=== PATIENT | female | born 1995 | race African-American/Black ===

== ENCOUNTER 2017-01-22 12:08 | Emergency (ER) | payer BC, MEDICAID ==
[~2017-01-22] VITALS: Ht 165.1 cm; Wt 72.6 kg
[~2017-01-22 12:08] MED LIST: ALBUTEROL SULF8.5 GM INH; IBUPROFEN600 MG PO
--- NOTE | 2017-01-22 12:55 | Emergency Room Report ---
History of Present Illness General Chief Complaint: General Complaint Source: Patient Present Illness HPI 21-year-old female presents emergency department complaining of 10 out of 10 in severity right plantar tenderness x1 week. Patient states the pain and it resolved however over the last 3 days her pain progressed again. Patient does not recall appreciable trauma. 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 Patient states that her swelling typically resolves with elevation. Patient reports pain and swelling to the plantar aspect of the right foot which is new for her. She denies erythema, increased temperature palpation, claudication, calf pain, recent travel, skin color changes, loss of sensation. Patient states that the bottom of her right foot is very tender to light touch in the localized area near the arch. Denies numbness tingling or loss of sensation or gross motor movements of the extremities, incontinence of bowel or bladder. Denies CP, Palpitations, LOC, AMS, dizziness, Changes in Vision, Sensation, paresthesias, or a sudden severe headache. Allergies: Coded Allergies: No Known Allergies (Unverified , 12/22/13) Patient History Past Medical History: see triage record Past Surgical History: none Pertinent Family History: none Now: No Immunizations: UTD Reviewed Nursing Documentation: PMH: Agreed, PSxH: Agreed Nursing Documentation-PMH Hx Asthma: Yes Review of Systems All Other Systems: negative except mentioned in HPI Physical Exam Vital Signs Date Time Temp Pulse Resp B/P Pulse Ox O2 Delivery O2 Flow Rate FiO2 01/22/17 12:25 98.1 68 16 110/70 98 Room Air Sp02 EP Interpretation: reviewed, normal General Appearance: no apparent distress, alert, GCS 15, non-toxic Head: normocephalic, atraumatic Eyes: bilateral eye PERRL, bilateral eye normal inspection ENT: hearing grossly normal, normal pharynx, no angioedema, normal voice Neck: full range of motion, supple/symm/no masses Respiratory: lungs clear, normal breath sounds, speaking full sentences Cardiovascular #1: regular rate, rhythm, edema - unilateral edema of the right foot and calf. no erythema, no increased temperature to palpation. Cardiovascular #2: 2+ dorsalis pedis (R), 2+ dorsalis pedis (L) Musculoskeletal: back normal, gait/station normal, normal range of motion, non- tender, no calf tenderness, tender - plantar ttp to the medial/arch of the right foot, good capillary refill, no obvious deformity, swelling noted to the foot and calf, small ST palpable nodule with moderate tenderness to superficial palpation. Neurologic: alert, oriented x3, responsive, motor strength/tone normal, sensory intact, normal gait, speech normal Psychiatric: judgement/insight normal, memory normal, mood/affect normal Skin: normal color, no rash, warm/dry, well hydrated, other - medial/ arch of the rght foot: small ST palpable nodule with moderate tenderness to superficial palpation. Lymphatic: no adenopathy Medical Decision Making PA Attestation Dr. Trevino is my supervising Physician whom patient management has been discussed with. Diagnostic Impression: Primary Impression: Lymph edema Additional Impression: Foot pain, right ER Course 21-year-old female presents emergency department complaining of 10 out of 10 in severity right plantar tenderness x1 week. Patient states the pain and it resolved however over the last 3 days her pain progressed again. Patient does not recall appreciable trauma. 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 Patient states that her swelling typically resolves with elevation. Patient reports pain and swelling to the plantar aspect of the right foot which is new for her. She denies erythema, increased temperature palpation, claudication, calf pain, recent travel, skin color changes, loss of sensation. Patient states that the bottom of her right foot is very tender to light touch in the localized area near the arch. Ddx considered but are not limited to Fracture, dislocation, contusion, Sprain/ Strain/Spasm, Soft tissue foreign body/retained FB, lymph edema, DVT. Vital signs: are WNL, pt. is afebrile H&PE are most consistent with possible Soft tissue FB. DVT not suspected at this time as pt. has long standing hx of unliateral right leg swelling since age 12, pt. states small area of localized plantar tenderness and swelling is new symptom. ORDERS: - X-ray Right foot 3 views. - negative for fx, Dislocation, significant soft tissue injury, or radiopaque foreign body- per official radiology report. ED INTERVENTIONS: - d/w pt. the results of her imaging. -patient is provided with crutches I do not suspect an emergent condition at this time. with current presentation pt. is stable for close outpatient follow up. -d/w pt proper follow up with her PCP, and to return to the ED for new or worsening symptoms. -d/w pt. that I will provide her with some conservative treatment for her pain. DISCHARGE: At this time pt. is stable for d/c to home. Will provide printed patient care instructions, and any necessary prescriptions. Care plan and follow up instructions have been discussed with the patient prior to discharge. Last Vital Signs Date Time Temp Pulse Resp B/P Pulse Ox O2 Delivery O2 Flow Rate FiO2 01/22/17 12:25 98.1 68 16 110/70 98 Room Air Disposition: HOME, SELF-CARE Condition: Stable Scripts Acetaminophen* (TYLENOL EXTRA STRENGTH*) 500 Mg Tablet 500 MG ORAL Q6H, #30 TAB 0 Refills Prov: Shannon Long 01/22/17 Lidocaine (ASPERCREME) 1 Each Adh..patch 1 EACH TP Q12HR, #20 PATCH Prov: Shannon Long 01/22/17 Referrals: NON PHYSICIAN (PCP) Additional Instructions: Take medications as directed. Follow up with PCP in 3-5 days Return sooner to ED if new symptoms occur, or current symptoms become worse. Do not drink alcohol, drive, or operate heavy machinery while taking [ ] as this may cause drowsiness. - Please note that this Emergency Department Report was dictated using [employer] supervisor technology software, occasionally this can lead to erroneous entry secondary to interpretation by the dictation equipment. Shannon Long Jan 22, 2017 12:55
--- NOTE | 2017-01-22 13:35 | Diagnostic Imaging Report ---
Indication: PAIN. Right foot swollen Technique: 3 views right foot Comparison: none Findings: There is mild metatarsus adductus. No acute fractures. No dislocations. Joint spaces are preserved. There is mild soft tissue swelling. No radiopaque foreign body demonstrated. Impression: Negative for acute bony trauma or evidence of radiopaque foreign body Soft tissue swelling
[2017-01-22] MEDS ORDERED: ASPERCREME1 EACH TP (13:46)
[2017-01-22] MEDS ORDERED: TYLENOL EXTRA500 MG ORAL (13:46)
[2017-01-22 14:47] VITALS: BP 110/60
[2017-01-22 17:44] VITALS: BP 100/70
== END 2017-01-22 14:10 | disposition home or self-care (01) ==
LOC: EMR 12:45
DX: M25.571 Pain in right ankle and joints of right foot (principal); I89.0 Lymphedema, not elsewhere classified; J45.909 Unspecified asthma, uncomplicated
CPT/HCPCS: 99284